=== PATIENT | male | born 1980 | race Caucasian/White ===

== ENCOUNTER 2019-04-15 09:54 | Emergency (ER) | payer MEDICARE, MEDICAID ==
[~2019-04-15] VITALS: Ht 172.7 cm; Wt 77.1 kg
[2019-04-15 14:01] VITALS: BP 124/81
== END 2019-04-15 14:26 | disposition home or self-care (01) ==
LOC: ER 10:00
DX: M25.552 Pain in left hip (principal); M25.551 Pain in right hip; I10 Essential (primary) hypertension; G43.909 Migraine, unspecified, not intractable, without status migrainosus; F32.9 Major depressive disorder, single episode, unspecified; Z76.0 Encounter for issue of repeat prescription